=== PATIENT | male | born 1965 | race Hispanic/Latino ===

== ENCOUNTER 2019-07-08 12:19 | Emergency (ER) | payer OTHER | END 2019-07-08 12:52 | disposition home or self-care (01) | LOC: ERS 12:19 | DX: Z02.79 Encounter for issue of other medical certificate (principal) | CPT/HCPCS: 99282 ==

== ENCOUNTER 2020-02-11 06:20 | Observation (INO) | payer OTHER ==
[2020-02-11 06:46] LABS: #Eosinphils 0.1 thou/uL (0.0-0.7); #Lymphocytes 2.3 thou/uL (1.20-3.40); #Monocytes 0.6 thou/uL (0.11-0.59); #Neutrophils 4.5 thou/uL (1.40-6.50); %Basophils 0.4 % (0.0-1.0); %Eosinophils 1.8 % (0.0-10.0); %Lymphocytes 30.4 % (21.0-51.0); %Monocytes 7.9 % (0.0-10.0); %Neutrophils 59.4 % (42.0-75.0); Hemoglobin 15.6 g/dL (14.0-18.0); Mean Corpuscular HGB CONC 33.7 g/dL (32.0-36.0); Mean Corpuscular Hemoglobin 28.4 pg (27.0-31.0); Mean Corpuscular Volume 84.4 fL (78.0-98.0); Mean Platelet Volume 10.9 fL (7.4-10.4); Platelet Count 153 thou/uL (130-400); RBC Distribution Width 12.3 % (11.5-14.5); Red Blood Cell (RBC) Count 5.48 mill/uL (4.70-6.10); White Blood Cell (WBC) Count 7.6 thou/uL (4.8-10.8)
[2020-02-11] MEDS ORDERED: Amlodipine 5 MG TAB ONE (06:57)
[2020-02-11] MEDS ORDERED: Metoprolol Tartrate 50 MG TAB ONE (06:57)
[2020-02-11] MEDS ORDERED: Aspirin 325 MG TAB ONE (06:57)
[2020-02-11] MEDS ORDERED: Losartan 25 MG TAB PO SCH (07:00)
[2020-02-11 07:32] LABS: CKMB 3.9 ng/mL (0-6.6)
--- NOTE | 2020-02-11 07:43 | RAD ---
RADIOGRAPH CHEST 1 VIEW: DATE: 02/11/2020 HISTORY: 54-year-old male with chest pain FINDINGS: The thoracic aorta is tortuous and ectatic. There is no evidence of airspace density, pulmonary edema , cardiomegaly, or pneumothorax. The lateral costophrenic angles are not effaced. IMPRESSION: 1) No acute pulmonary findings. 2) ectasia of thoracic aorta.
[2020-02-11 08:01] LABS: ALT (SGPT) 31 U/L (8-55); AST (SGOT) 26 U/L (5-34); Albumin 3.7 g/dL (3.5-5.0); Alkaline Phosphatase 79 U/L (40-110); Anion Gap 13 mmol/L (10-20); BUN (Urea Nitrogen) 16 mg/dL (8.4-25.7); Bilirubin, Total 0.3 mg/dL (0.2-1.2); Calc. Creatinine Clearance 0 mL/min (70-130); Calcium 8.4 mg/dL (7.8-10.44); Carbon Dioxide 21 mmol/L (22-29); Chloride 106 mmol/L (98-107); Estimated GFR-MDRD 77; Globulin 3.5 g/dL (2.4-3.5); Glucose 228 mg/dL (70-105); Potassium 4.1 mmol/L (3.5-5.1); Protein, Total 7.2 g/dL (6.0-8.3); Sodium 136 mmol/L (136-145)
[2020-02-11] MEDS ORDERED: Dextrose 5% in Water 1,000 ML IV PRN (10:26)
[2020-02-11] MEDS ORDERED: Dextrose 50% Abboject 50 ML SYRINGE SLOW IVP PRN (10:26)
[2020-02-11] MEDS ORDERED: HumaLOG 300 UNITS/3 ML VIAL SC PRN ×2 (10:26)
--- NOTE | 2020-02-11 10:35 | PDOC.HHP ---
Hospitalist HPI - History of Present Illness chest pain History of Present Illness: Mr. Jain is a [id number]-year-old male with a past medical history of hypertension, hyperlipidemia, type 2 diabetes mellitus, heart murmur who presents with acute onset of chest pain. Patient reports that approximately 5:30 AM this morning he was awoken from sleep with a crushing chest pressure that lasted approximately 2 minutes. Patient reports his symptoms were associated with briefly left arm tingling and mild shortness of breath. Patient reports that he checked his home blood pressure and noted it to be very high 180, so he presented to the emergency room. Patient reports these episodes of chest pain have been occurring every few hours. He denies any prior history of chest pain. Denies any history of prior cardiac disease, does report that he had a stress test sometime around 2002. Does have a family history of heart disease in his mother who had heart attacks in her 60s. Patient denies any all eviating or aggravating factors. No relation to food or meals. No history of GERD. Patient is a non-smoker. In emergency room initial vital signs 183/91, 74, 16, 98.3, 96% on room air. EKG showed nonspecific changes, but no ST depression or elevation. Initial troponin 0 0.032. H/H 15.6/46.2, WBC 7.6. BUN/CR 16/1.01. Sodium 136, potassium 4.1. Chest x-ray showed no acute findings, did note incidental ectasia of the thoracic aorta. Patient received 100 mg of losartan, 50 mg of metoprolol, and 10 mg of amlodipine in the emergency room. Patient had not picked up his prescriptions from his pharmacy, and did not take his home medications this morning. Patient received 325 mg of aspirin. Hospitalist ROS - Review of Systems Constitutional: denies: fever, chills, sweats, weakness, malaise, other Eyes: denies: pain, vision change, conjunctivae inflammation, eyelid inflammation, redness, other ENT: denies: ear pain, ear discharge, nose pain, nose discharge, nose con gestion, mouth pain, mouth swelling, throat pain, throat swelling, other Respiratory: denies: cough, dry, shortness of breath, hemoptysis, SOB with excertion, pleuritic pain, sputum, wheezing, other Cardiovascular: reports: chest pain. denies: palpitations, orthopnea, paroxysmal noc. dyspnea, edema, light headedness, other Gastrointestinal: denies: nausea, vomiting, abdominal pain, diarrhea, constipation, melena, hematochezia, other Genitourinary: denies: dysuria, frequency, incontinence, hematuria, retention, other Musculoskeletal: denies: neck pain, shoulder pain, arm pain, back pain, hand pain, leg pain, foot pain, other Skin: denies: rash, lesions, gayle, bruising, other Neurological: denies: weakness, numbness, incoordination, change in speech, confusion, seizures, other - Medication Medications: Home medications include Amlodipine Glimepiride Metformin Losartan Metoprolol Aspirin No known drug allergies Hospitalist History - Past Medical History Other Medical History: Past medical history significant for Hypertension Type 2 diabetes Heart murmur - Past Surgical History Other Surgical History: Past surgical history of Appendectomy - Family History Other Family History: Family history of diabetes, heart disease. Patient's mother has had heart attacks in her 60s. - Social History Smoking Status: Never smoker Alcohol: reports: Occassional Living Situation: With Family Activity level: independent ambulation - Exam General Appearance: NAD, awake alert Eye: PERRL, anicteric sclera ENT: normocephalic atraumatic, no oropharyngeal lesions, moist mucosa Neck: supple, symmetric, no JVD, no thyromegaly, no lymphadenopathy, no carotid bruit Heart: RRR, no gallops, no rubs, normal peripheral pulses, murmur present (Systolic ejection murmur loudest over the right sternal border) Respiratory: CTAB, no wheezes, no rales, no ronchi, normal chest expansion, no tachypnea, normal percussion Gastrointestinal: soft, non-tender, non-distended, normal bowel sounds, no palpable masses, no hepatomegaly, no splenomegaly, no bruit Extremities: no cyanosis, no clubbing, no edema Neurological: cranial nerve grossly intact, normal sensation to touch, no weakness, no focal deficits, no new deficit Musculoskeletal: normal tone, normal strength, no muscle wasting Psychiatric: normal affect, normal behavior, A&O x 3 Hospitalist Results - Labs Result Diagrams: 02/11/20 06:34 02/11/20 07:34 Lab results: WBC 7.6 thou/uL (4.8-10.8) 02/11/20 06:34 Hgb 15.6 g/dL (14.0-18.0) 02/11/20 06:34 Hct 46.2 % (42.0-52.0) 02/11/20 06:34 MCV 84.4 fL (78.0-98.0) 02/11/20 06:34 Plt Count 153 thou/uL (130-400) 02/11/20 06:34 Neutrophils % 59.4 % (42.0-75.0) 02/11/20 06:34 Sodium 136 mmol/L (136-145) 02/11/20 07:34 Potassium 4.1 mmol/L (3.5-5.1) 02/11/20 07:34 Chloride 106 mmol/L (98-107) 02/11/20 07:34 Carbon Dioxide 21 mmol/L (22-29) L 02/11/20 07:34 BUN 16 mg/dL (8.4-25.7) 02/11/20 07:34 Creatinine 1.01 mg/dL (0.7-1.3) 02/11/20 07:34 Glucose 228 mg/dL (70-105) H 02/11/20 07:34 Calcium 8.4 mg/dL (7.8-10.44) 02/11/20 07:34 Total Bilirubin 0.3 mg/dL (0.2-1.2) 02/11/20 07:34 AST 26 U/L (5-34) 02/11/20 07:34 ALT 31 U/L (8-55) 02/11/20 07:34 Alkaline Phosphatase 79 U/L (40-110) 02/11/20 07:34 CK-MB (CK-2) 3.9 ng/mL (0-6.6) 02/11/20 06:34 Troponin I 0.032 ng/mL (< 0.028) H 02/11/20 06:34 Serum Total Protein 7.2 g/dL (6.0-8.3) 02/11/20 07:34 Albumin 3.7 g/dL (3.5-5.0) 02/11/20 07:34 Hospitalist H&P A/P - Plan Plan: Chest pain 54-year-old male with past medical history of type 2 diabetes, hypertension, hea rt murmur who presents for acute onset of crushing chest pain lasting minutes. Initial EKG showed nonspecific T wave changes, but no ST depression or elevation. Initial troponin indeterminate at 0.032. Patient received 325mg of aspirin in the emergency room. Patient currently resting comfortably with no chest pain. Will admit for chest pain rule out. Will obtain echocardiogram due to murmur on exam. Patient has not had a stress test since approximately 2002. Will trend troponins and if low plan for stress test in morning. Plan Trend troponin Telemetry monitoring ASA, Nitropaste N.p.o. at midnight for stress test Echocardiogram -Magnesium, TSH, lipid panel Hypertensive emergency Patient presenting with hypertensive urgency versus emergency with initial blood pressure 183/91. Patient reports he did not take his home medications since he ran out of them and did not pick them up at the pharmacy. ED continued patient's home medications and patient received losartan, amlodipine, metoprolol in the emergency room. Patient's blood pressure now 141/82. Will continue patient's home medications, and continue to monitor closely. Plan Continue home losartan, amlodipine, metoprolol Continue to monitor Type 2 diabetes mellitus History of type 2 diabetes mellitus on glimepiride and Metformin. BUN/CR 16/1.01. Will hold oral medications during admission and place on insulin sliding scale. Will check a hemoglobin A1c. Plan Insulin sliding scale Hemoglobin A1c Cardiac murmur Patient reports he has had a known cardiac murmur since childhood. Patient says that he was told he would "grow out of it". Patient not able to recall any recent echocardiogram. Systolic murmur heard best at the right sternal border on exam. Will obtain echocardiogram to rule out aortic stenosis versus valvular pathology. Plan Echocardiogram DVT prophylaxis Lovenox Full code, patient has named his as his medical decision-maker Case discussed with attending physician Dr. Amaro.
[2020-02-11 12:36] LABS: Hemoglobin A1c 8.6 % (4.0-6.0)
[2020-02-11] MEDS ORDERED: Nitroglycerin 2% Ointment 1 INCH/1 GM Packet TOP SCH (14:00)
[2020-02-12] MEDS ORDERED: Aspirin 325 mg Enteric Coated Tablet PO SCH (09:00)
[2020-02-12] MEDS ORDERED: Enoxaparin Sodium 40 MG/0.4 ML SYRINGE SC SCH (09:00)
--- NOTE | 2020-02-16 16:27 | EKG ---
Test Reason : Blood Pressure : / mmHG Vent. Rate : 071 BPM Atrial Rate : 071 BPM P-R Int : 140 ms QRS Dur : 084 ms QT Int : 406 ms P-R-T Axes : 051 -14 136 degrees QTc Int : 441 ms Normal sinus rhythm Abnormal ECG Confirmed by JASON WELLS DO ([id number]), technical editor LEANDRO ECHEVERRIA ([id number] on 02/16/2020 4:27:03 PM Referred By: Confirmed By:JASON WELLS DO
== END 2020-02-11 15:05 | disposition short-term general hospital (02) ==
LOC: ERS 06:20 → ERHOLD 08:40
PROVIDERS: ADMIT Internal Medicine; ATTEND Internal Medicine
DX: I16.1 Hypertensive emergency (principal); R07.9 Chest pain, unspecified; E11.9 Type 2 diabetes mellitus without complications; E78.5 Hyperlipidemia, unspecified; I10 Essential (primary) hypertension; Z79.82 Long term (current) use of aspirin; Z79.84 Long term (current) use of oral hypoglycemic drugs; Z79.899 Other long term (current) drug therapy
CPT/HCPCS: 36415; 71045; 80053; 82553; 83036; 83735; 84443; 84484; 85025; 93005

== ENCOUNTER 2021-03-06 18:28 | Emergency (ER) | payer OTHER | END 2021-03-06 19:32 | disposition home or self-care (01) | LOC: ERS 18:28 | DX: S39.012A Strain of muscle, fascia and tendon of lower back, initial encounter (principal); I10 Essential (primary) hypertension; E11.9 Type 2 diabetes mellitus without complications; X50.0XXA Overexertion from strenuous movement or load, initial encounter; Y92.69 Other specified industrial and construction area as the place of occurrence of the external cause | CPT/HCPCS: 99283 ==

== ENCOUNTER 2021-03-26 15:06 | Outpatient (CLI) | payer OTHER | END 2021-03-26 15:07 | disposition home or self-care (01) | LOC: BICRAD 15:06 | PROVIDERS: ATTEND Physician Assistant | DX: M54.41 Lumbago with sciatica, right side (principal); M54.42 Lumbago with sciatica, left side; G89.29 Other chronic pain; M47.816 Spondylosis without myelopathy or radiculopathy, lumbar region | CPT/HCPCS: 72100 ==

== ENCOUNTER 2022-04-09 10:23 | Emergency (ER) | payer OTHER ==
[2022-04-09 11:11] LABS: #Eosinphils 0.1 thou/uL (0.0-0.7); #Lymphocytes 1.4 thou/uL (1.20-3.40); #Monocytes 0.4 thou/uL (0.11-0.59); #Neutrophils 3.8 thou/uL (1.40-6.50); %Basophils 0.3 % (0.0-1.0); %Eosinophils 1.6 % (0.0-10.0); %Lymphocytes 24.3 % (21.0-51.0); %Monocytes 6.2 % (0.0-10.0); %Neutrophils 67.6 % (42.0-75.0); Hemoglobin 13.1 g/dL (14.0-18.0); Mean Corpuscular HGB CONC 33.2 g/dL (32.0-36.0); Mean Corpuscular Hemoglobin 28.3 pg (27.0-31.0); Mean Corpuscular Volume 85.3 fl (78.0-98.0); Mean Platelet Volume 11.1 fL (7.4-10.4); Platelet Count 132 10x3/uL (130-400); RBC Distribution Width 12.3 % (11.5-14.5); Red Blood Cell (RBC) Count 4.62 mill/uL (4.70-6.10); White Blood Cell (WBC) Count 5.6 10x3/uL (4.8-10.8)
[2022-04-09 11:31] LABS: ALT (SGPT) 18 U/L (8-55); AST (SGOT) 26 U/L (5-34); Albumin 3.9 g/dL (3.5-5.0); Alkaline Phosphatase 48 U/L (40-110); Anion Gap 11 mmol/L (10-20); BUN (Urea Nitrogen) 22 mg/dL (8.4-25.7); Bilirubin, Total 0.6 mg/dL (0.2-1.2); Calc. Creatinine Clearance 0 mL/min (70-130); Calcium 9.2 mg/dL (7.8-10.44); Carbon Dioxide 25 mmol/L (22-29); Chloride 104 mmol/L (98-107); Estimated GFR 78; Globulin 3.3 g/dL (2.4-3.5); Glucose 119 mg/dL (70-105); Potassium 3.7 mmol/L (3.5-5.1); Protein, Total 7.2 g/dL (6.0-8.3); Sodium 136 mmol/L (136-145)
== END 2022-04-09 16:17 | disposition home or self-care (01) ==
LOC: ERS 10:23
DX: R42 Dizziness and giddiness (principal); I10 Essential (primary) hypertension; E11.9 Type 2 diabetes mellitus without complications
CPT/HCPCS: 36415; 70450; 71045; 80053; 84484; 85025; 93005